=== PATIENT | female | born 1990 | race Caucasian/White ===

== ENCOUNTER 2017-11-12 12:11 | Inpatient (IN) | payer SELFPAY ==
[2017-11-12 13:56] LABS: Bacteria,Urine 4+ /HPF (Negative); Bilirubin,Urine NEG (Negative); Blood,Urine MOD (Negative); Color,Urine Yellow (Yellow); Protein,Urine <15 mg/dL mg/dL (Negative); Urobilinogen,Urine < 2.0 mg/dL (<2.0)
[2017-11-12] MEDS ORDERED: MINERAL OIL PO PRN (16:01)
[2017-11-12] MEDS ORDERED: BRETHINE SUB-Q PRN (16:01)
[2017-11-12] MEDS ORDERED: BRETHINE IVP PRN (16:01)
--- NOTE | 2017-11-12 16:20 | History and Physical Report ---
History of Present Illness Date of examination: 11/12/17 Date of admission: 11/12/17 12:12 Chief complaint: "I haven't felt my baby move since yesterday afternoon." History of present illness: 27yo 28 5/7 weeks by ultrasound today presents to L&D complaining of decreased movement and found to have an intrauterine demise on ultrasound. The ultrasound also reflects possible enlarged kidneys, pending radiologist reading. On admission the heart tracing was difficult to trace and a 150-160bpm was obtained for ~1.5min. Maternal heart rate was 80. An ultrasound was obtained that reflected no cardiac activity. She states her was complicated by 2 episodes of light bleeding at 2 months and again in October. Her last OB visit was 10/08/17 and next appointment scheduled for 11/17/17. She is a patient of [facility]. Her records are not available this weekend due to the clinic being closed. She is unaware of any anatomical abnormalities and states she has had 2 ultrasounds this . Past History Past Surgical History: other (R arm fracture at 11 years old) Social history: - Obstetrical History : 3 Hx # Term Pregnancies: 2 Medications and Allergies Allergies Allergy/AdvReac Type Severity Reaction Status Date / Time No Known Allergies Allergy Unverified 11/12/17 13:07 Home Medications Medication Instructions Recorded Confirmed Last Taken Type No Known Home Medications [No 11/12/17 11/12/17 Unknown History Reported Home Medications] Active Meds: Active Medications Ephedrine Sulfate (Ephedrine Sulfate) 10 mg IV Q2M PRN PRN Reason: Hypotension Fentanyl (Sublimaze) 100 mcg IV Q2H PRN PRN Reason: Labor Pain Lactated Ringer's (Lactated Ringers) 1,000 mls @ 125 mls/hr IV DIRECT MICHELLE Oxytocin/Sodium Chloride (Pitocin/Ns 20 Unit/1000ml Drip) 20 units in 1,000 mls @ 125 mls/hr IV DIRECT MICHELLE Oxytocin/Sodium Chloride (Pitocin/Ns 30 Unit/500ml) 30 units in 500 mls @ 1 mls /hr IV TITR MICHELLE; Protocol Oxytocin/Sodium Chloride (Pitocin/Ns 30 Unit/500ml) 30 units in 500 mls @ 2 mls /hr IV TITR MICHELLE; Protocol Stop: 11/15/17 23:59 Lidocaine (Xylocaine 2%) 20 ml INFILTRATI ONCE ONE Stop: 11/12/17 16:02 Mineral Oil (Mineral Oil) 30 ml PO QHS PRN PRN Reason: Constipation Misoprostol (Cytotec) 100 mcg PO Q6HR MICHELLE Stop: 11/13/17 06:01 Terbutaline Sulfate (Brethine) 0.25 mg SUB-Q ONCE PRN PRN Reason: Hyperstimulation/Hypertonicity Terbutaline Sulfate (Brethine) 0.25 mg IVP ONCE PRN PRN Reason: Hyperstimulation/Hypertonicity Review of Systems Psychiatric: other (tearful) - Vital Signs Vital signs: Vital Signs Pulse BP 75 109/55 11/12/17 12:47 11/12/17 12:47 Temp Pulse Resp BP Pulse Ox 75 109/55 11/12/17 12:47 11/12/17 12:47 - Obstetrical FHR comments: no cardiac activity on ultrasound Results Abnormal lab results 11/12/17 Range/Units 13:17 Urine WBC (Auto) 30.0 H (0.0-6.0) /HPF U Epithel Cells (Auto) 29.0 H (0-13.0) /HPF All other labs normal. Assessment and Plan - Patient Problems (1) 28 weeks gestation of Current Visit: Yes Status: Acute Plan to address problem: Obtain records when office opens. (2) Intrauterine in Current Visit: Yes Status: Acute Plan to address problem: 1. Labs, IVF 2. Misoprostol 100-200mcg PO Q4hrs. Start Pitocin once cervix ripened. 3. demise protocol. 4. Fetus to pathology or autopsy upon patient request.
[2017-11-12] MEDS ORDERED: LACTATED RINGERS 1,000 ML IV SCH (17:00)
[2017-11-12] MEDS ORDERED: PITOCin/NS 20 UNIT/1000ML DRIP 20 UNITS/1,000 ML BAG IV SCH (17:00)
[2017-11-12] MEDS ORDERED: PITOCin/NS 30 UNIT/500ML 30 UNITS/500 ML BAG IV SCH (17:00)
[2017-11-12] MEDS ORDERED: XYLOCAINE 2% INFILTRATI ONE (17:00)
--- NOTE | 2017-11-12 17:23 | Ultrasound Report ---
FINAL REPORT PROCEDURE: US OB LIMITED TECHNIQUE: Real-time limited sonographic examination was performed for evaluation of size, position, heartbeat, fluid volume for each fetus with image documentation (1 or more fetuses). CPT 28309 HISTORY: Decreased movement COMPARISON: No prior studies are available for comparison. FINDINGS: FETUS IUP: Single intrauterine . Position: Breech. Placental position: Posterior Amniotic fluid volume: Amniotic fluid index measures 10.4 centimeters Heart rate and rhythm: There is no cardiac activity anatomic survey: There are 2 large symmetric complex structures within the abdomen, 1 measuring 6.0 x 4.4 x 4.3 centimeters and the other measuring 4.4 x 3.8 x 4.3 centimeters, possibly related to enlarged kidneys. IMPRESSION: demise
[2017-11-12 17:25] LABS: Hemoglobin 11.5 gm/dl (10.1-14.3); Mean Corpuscular HGB Conc 35 % (30-34); Mean Corpuscular Hemoglobin 29 pg (28-32); Mean Corpuscular Volume 83 fl (79-97); Platelet Count 246 K/mm3 (140-440); Red Cell Distribution Width 13.6 % (13.2-15.2)
[2017-11-12] MEDS ORDERED: CYTOTEC PO SCH (18:00)
[2017-11-13] MEDS ORDERED: PITOCin/NS 30 UNIT/500ML 30 UNITS/500 ML BAG IV SCH (00:01)
[2017-11-13] MEDS: CYTOTEC PO SCH ×2 (00:06→04:01)
[2017-11-13] MEDS: SUBLIMAZE IV PRN ×2 (02:40→05:35)
[2017-11-13] MEDS ORDERED: CYTOTEC PO SCH (06:00)
[2017-11-13] MEDS ORDERED: BENADRYL PO PRN (06:17)
[2017-11-13] MEDS ORDERED: NORCO 5/325 PO PRN (06:17)
[2017-11-13] MEDS ORDERED: LANSINOH TP PRN (06:17)
[2017-11-13] MEDS ORDERED: TUCKS PAD TP PRN (06:17)
[2017-11-13] MEDS ORDERED: DULCOLAX PR PRN (06:17)
[2017-11-13] MEDS ORDERED: TYLENOL PO PRN (06:17)
[2017-11-13] MEDS ORDERED: ZOFRAN IV PRN (06:17)
[2017-11-13] MEDS ORDERED: MILK OF MAGNESIA PO PRN (06:17)
[2017-11-13] MEDS ORDERED: PHENERGAN PO PRN (06:17)
--- NOTE | 2017-11-13 06:26 | Procedure Note ---
OB Delivery Note - Delivery Date of Delivery: 11/13/17 Surgeon: CORIN FAYE Estimated blood loss: 100cc - Vaginal Intrapartum events: other(please specify) ( demise prior to induction of labor) Delivery induction: misoprostol Delivery monitor: none Route of delivery: Delivery placenta: spontaneous (Placenta cord clotted with no blood flow) Delivery cord: 3 umbilical vessels Episiotomy: none Delivery laceration: none Delivery comments: Upon my entry into the room infant delivered spontaneously with no respirations or heart rate. Normal facies. No anatomical abnormalities noted on gross exam. Eyes closed. - Infant A at 1 minute: 0 at 5 minutes: 0 (Upon my entry into the room delivered spontaneously with no respirations or heart rate. Fetus placed on maternal abdomen.)
[2017-11-13] MEDS ORDERED: SODIUM CHLORIDE FLUSH SYRINGE 10 ML IV NR (07:00)
[2017-11-13] MEDS: MOTRIN PO SCH (07:52)
[2017-11-13] MEDS ORDERED: PITOCin/NS 20 UNIT/1000ML DRIP 20,000 MILLIUNITS/1,000 ML BAG IV ONE (07:58)
[2017-11-13 20:17] LABS: Hematocrit 31.9 % (30.3-42.9)
[2017-11-14] MEDS: MOTRIN PO SCH (07:27)
--- NOTE | 2017-11-14 14:18 | Progress Note ---
Assessment and Plan - Patient Problems (1) Status post normal vaginal delivery Current Visit: Yes Status: Acute Plan to address problem: PPD 2 - stable Discharge to home today Follow-up at [facility] in 6 weeks for PP exam (2) IUFD (intrauterine ) Current Visit: Yes Status: Acute Subjective - Subjective Date of service: 11/14/17 Principal diagnosis: s/p , PPD 2 Patient reports: appetite normal, voiding normally, pain well controlled, ambulating normally [place]: (IUFD) Objective - Vital Signs Latest vital signs: Vital Signs Temp Pulse Resp BP Pulse Ox 11/14/17 08:06 98.0 F 55 L 12 108/66 98 11/14/17 06:30 98.4 F 62 16 110/71 11/14/17 04:00 98.6 F 69 18 118/67 11/14/17 00:00 98.6 F 69 18 114/78 11/13/17 19:30 98.7 F 64 16 110/72 11/13/17 16:35 97.7 F 53 L 18 101/56 Intake and Output 11/13/17 11/14/17 11/14/17 23:59 07:59 15:59 Intake Total 620 600 Output Total 600 Balance 20 600 Intake: Oral 320 Intake, Free Water 300 600 Output: Urine 600 Void 600 Other: Total, Intake Amount 320 Total, Output Amount 200 - Exam Abdomen: Present: normal appearance, soft Vulva: both: normal Uterus: Present: normal, firm Extremities: Present: normal
--- NOTE | 2017-11-14 14:20 | Discharge Summary ---
Providers - Providers Date of Admission: 11/12/17 12:12 Date of discharge: 11/14/17 Attending physician: ERIK DAVEY MD Primary care physician: ERIK DAVEY MD Hospitalization Reason for admission: IUP - , induction of labor, IUFD Delivery: Episiotomy: none Laceration: none Other procedures: none complications: none Discharge diagnosis: intrapartum demise (IUFD) baby: female Hospital course: Uncomplicated Condition at discharge: Stable Disposition: [id number] TO HOME OR SELFCARE - Discharge Diagnoses (1) Status post normal vaginal delivery Status: Acute (2) IUFD (intrauterine ) Status: Acute Plan - Provider Discharge Summary Activity: routine, no sex for 6 weeks, no heavy lifting 4 weeks, no strenuous exercise Diet: routine Instructions: routine Additional instructions: [] Smoking cessation referral if applicable(refer to patient education folder for contact #) [] Refer to [facility]'s [facility] Booklet Call your doctor immediately for: * Fever > 100.5 * Heavy vaginal bleeding ( >1 pad per hour) * Severe persistent headache * Shortness of breath * Reddened, hot, painful area to leg or breast * Drainage or odor from incision. * Keep incision clean and dry at all times and follow doctor's instructions regarding bathing/showering - Follow up plan Follow up: ERIK DAVEY MD [Primary Care Provider] - 6 Weeks (Follow-up at [facility] in 6 weeks for PP exam)
[2017-11-14 19:27] VITALS: BP 106/64
== END 2017-11-14 14:52 | disposition home or self-care (01) | DRG 775 ==
LOC: EDBD 12:11 → TRG 12:11 → LD 12:12 → TRG 12:12 → OB 11-13 08:03
PROVIDERS: ADMIT Obstetrics & Gynecology; ATTEND Obstetrics & Gynecology
PROC: 10E0XZZ Delivery of Products of Conception, External Approach (ICD-10-PCS; principal; 2017-11-13)
PROC: 3E0P7VZ Introduction of Hormone into Female Reproductive, Via Natural or Artificial Opening (ICD-10-PCS; 2017-11-13)
DX: O36.4XX0 Maternal care for intrauterine death, not applicable or unspecified (principal); O60.13X0 Preterm labor second trimester with preterm delivery third trimester, not applicable or unspecified; Z3A.28 28 weeks gestation of pregnancy; Z37.1 Single stillbirth
CPT/HCPCS: 36415; 76815; 81001; 85014; 85018; 85027; 86850; 86900; 86901; 88307; J2590; J3010